=== PATIENT | female | born 1985 | race Caucasian/White ===

== ENCOUNTER → 2019-07-20 11:15 | Outpatient (BNVA) | payer OTHER, SELFPAY | PROVIDERS: Family Provider Nurse Practitioner Family; PCP Family Medicine; Visit Provider Nurse Practitioner Women's Health | DX: G89.29 Other chronic pain (principal); R53.83 Other fatigue; N64.4 Mastodynia; R00.0 Tachycardia, unspecified; I95.1 Orthostatic hypotension; G43.909 Migraine, unspecified, not intractable, without status migrainosus | CPT/HCPCS: 36415; 82670; 83001; 84439; 84443; 85025 ==

== ENCOUNTER 2020-01-03 09:37 | Outpatient (CLI) | payer OTHER, SELFPAY ==
--- NOTE | 2020-01-03 10:09 | XRR_ITS ---
PROCEDURE INFORMATION: Exam: XR Left Foot Complete Exam date and time: 01/03/2020 10:28 AM Age: 34 years old Clinical indication: Pain; Foot; Bilateral; Patient HX: Redness in lower extremities; Additional info: Chronic pain TECHNIQUE: Imaging protocol: XR Left foot. Views: 3 or more views. COMPARISON: No relevant prior studies available. FINDINGS: Bones/joints: Normal. Soft tissues: Normal. XR/XR foot LT min 3V* [id number] IMPRESSION: No acute findings.
--- NOTE | 2020-01-03 10:09 | XRR_ITS ---
PROCEDURE INFORMATION: Exam: XR Right Foot Complete Exam date and time: 01/03/2020 10:23 AM Age: 34 years old Clinical indication: Pain; Foot; Bilateral; Patient HX: Redness in lower extremity; Additional info: Chronic pain TECHNIQUE: Imaging protocol: XR Right foot. Views: 3 or more views. COMPARISON: No relevant prior studies available. FINDINGS: Bones/joints: Normal. Soft tissues: Normal. XR/XR foot RT min 3V* [id number] IMPRESSION: No acute findings.
== END 2020-01-03 09:38 | disposition home or self-care (01) ==
LOC: RAD 09:40
PROVIDERS: Family Provider Family Medicine; PCP Family Medicine; Visit Provider Nurse Practitioner Women's Health
DX: M79.672 Pain in left foot (principal); M79.671 Pain in right foot; G89.29 Other chronic pain
CPT/HCPCS: 73630

== ENCOUNTER → 2020-01-06 08:45 | Outpatient (BNVA) | payer OTHER, SELFPAY | PROVIDERS: Family Provider Family Medicine; PCP Family Medicine; Visit Provider Family Medicine | DX: Z00.00 Encounter for general adult medical examination without abnormal findings (principal) | CPT/HCPCS: 73030 ==

== ENCOUNTER 2020-02-25 14:23 | Emergency (ER) | payer OTHER, SELFPAY ==
[2020-02-25 14:25] VITALS: BP 146/94; PULSE 95; RESP 16; TEMP 36.7; O2SAT 100; BMI 21.9
--- NOTE | 2020-02-25 14:31 | CT_ITS ---
WS: [id number] CT scan of the head, 02/25/2020 Clinical Data: fry Comparison: CT head, 12/18/2018. DLP: 757.[address] scans at [facility] use at least one of these dose optimization techniques: automat ed exposure control; mA and/or kV adjustment per patient size (includes targeted exams where dose is matched to clinical indication); or iterative reconstruction. Findings: The ventricular system is normal without shift. No recent infarct or hemorrhage is seen. There are no abnormal intracerebral masses. The cerebellum and brainstem are not remarkable. Bony windows of the skull and skull base show no fractures or erosions. The mastoid air cells, international broadcast music librarian al auditory canals, sella turcica, intraorbital contents, and paranasal sinuses are unremarkable. CT/CT head wo con* [id number] Impression: Negative CT scan of the head
--- NOTE | 2020-02-25 14:32 | ECG_ITS ---
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 Measurements Intervals [place] Rate: 97 P: 65 IL: 139 QRS: 74 QRSD: 96 T: 78 QT: 366 QTc: 466 Interpretive Statements SINUS RHYTHM INCOMPLETE RIGHT BUNDLE BRANCH BLOCK [90+ ms QRS DURATION, TERMINAL R IN V1/V2, 40+ ms S IN I/aVL/V4/V5/V6] SEPTAL MYOCARDIAL INFARCTION , OF INDETERMINATE AGE [40+ ms Q WAVE IN V1/V2] Compared to ECG 08/11/2017 17:42:39 No significant changes Electronically Signed On 02-25-2020 16:11:53 CDT by Urbano Bustamante M.D. [id number]
--- NOTE | 2020-02-25 14:32 | W.ED.SYNCOPE ---
HPI - Syncope General: Chief Complaint: Chest Pain Stated Complaint: HEAD AND CHEST PAIN Time Seen by Provider: 02/25/20 14:23 Source: patient and EMS Mode of arrival: EMS Limitations: no limitations History of Present Illness: HPI narrative: 34-year-old female who has a history of migraines who states she had a migraine today. States it felt like her previous migraines. States she is at work and a friend told her she smoked marijuana to help her. She states she has never smoked before and spoke with her friend. States she felt lightheaded and then had a syncopal event. She states she now has some chest pain as well. States she still has a headache. Denies any vomiting or diarrhea. Associated symptoms: Reports chest pain and headache(s); Deny abdominal pain, fever(s) or nausea Review of Systems Const: Denies: fever(s), chills, body aches or change in appetite Eyes: Denies: blurry vision or eye discomfort ENMT: Denies: throat pain or dental pain Card: Reports: chest pain and syncope Resp: Denies: dyspnea GI: Denies: abdominal pain, nausea, vomiting or diarrhea : Denies: dysuria Musc: Denies: neck pain or back pain Skin/Breast: Denies: rash Neuro: Reports: headache(s) Psych: Denies: depression [place]ison/Lymph: Denies: easy bruising All/Imm: Denies: urticaria PFSH ED PFSH: Medical History Breast pain in female Chronic pain Fatigue Migraine POTS (postural orthostatic tachycardia syndrome) Surgical History History of bladder repair surgery 2 different procedures completed by Dr. Cabezas; one during hyst and one after for prolapse History of breast augmentation History of laparoscopic-assisted vaginal hysterectomy Ovaries were spared--due to endometriosis Family History Grandmother Cancer Maternal Grandmother-Breast cancer Diabetes Hypertension Mother Hypertension Father Hypertension Grandfather Hypertension Paternal Stroke Grandmother Hypertension Paternal Stroke Paternal Denies family history of CAD (coronary artery disease) Social History Smoking and tobacco status: never smoked Alcohol intake: former Former alcohol use details: Social Physical Exam Const: COMMON NORMALS: no acute distress, patient oriented x3 and healthy appearing HENMT: COMMON NORMALS: normocephalic and atraumatic HEAD & SCALP: normocephalic and atraumatic Eye: COMMON NORMALS: Equal, round and reactive pupils present and EOMs intact bilaterally PUPIL: Yes Equal, round and reactive pupils present Neck/C-Spine: COMMON NORMALS: full ROM and supple Chest: COMMONS NORMALS: normal inspection of the chest and normal palpation of entire chest wall Resp: COMMON NORMALS: normal respiratory effort, No retractions, No use of accessory muscles and clear to auscultation bilaterally AUSCULTATION: clear to auscultation bilaterally Cardio: COMMON NORMALS: regular rate, regular rhythm and No murmurs present (Cardio) RATE: regular rate RHYTHM: regular rhythm GI: COMMON NORMALS: Normal to inspection, nondistended, normoactive bowel sounds present, Soft to palpation, non-tender and no masses PALPATION: Yes Soft to palpation Extremity: COMMON NORMALS: normal to inspection and full ROM Neuro: COMMON NORMALS: patient oriented x3, moves all extremities and no focal motor deficits Psych: COMMON NORMALS: mental status grossly normal, Normal thought process present and cooperative THOUGHT PROCESS: Normal thought process present Skin: COMMON NORMALS: no rashes or lesions noted and no wounds GENERAL SKIN EXAM: no rashes or lesions noted Course Vital Signs: Vital signs: Vital Signs Temperature 98.1 F 02/25/20 14:25 Pulse Rate 101 H 02/25/20 15:26 Respiratory Rate 21 H 02/25/20 15:26 Blood Pressure 128/93 02/25/20 15:26 Pulse Oximetry 100 02/25/20 15:26 MDM - Syncope MDM Narrative: Medical decision making narrative: Lubna presents with a headache does have chronic headaches. Her head CT here is normal. Patient's headache is improved. Patient also simple event likely due to marijuana use. She is well-appearing here and is stable for discharge she has no signs of cardiac cause for this event. Lab Data: Labs: Lab Results 02/25/20 02/25/20 Range/Units 15:05 15:05 WBC 6.5 (4.0-10.0) 10^3/ uL RBC 4.21 (4.1-5.3) 10^6/u L Hgb 12.8 (11.5-15.3) g/dL Hct 39.5 (37.0-47.0) % MCV 93.8 (81-99) fL MCH 30.4 (28.0-34.0) pg MCHC 32.4 (30.0-36.0) g/dL RDW 11.7 L (12.1-15.1) % Plt Count 193 (130-400) 10^3/c mm MPV 11.8 H (7.4-10.4) fL Neut % (Auto) 81.2 % Lymph % (Auto) 10.0 % [place] % (Auto) 7.5 % Eos % (Auto) 0.5 % Baso % (Auto) 0.5 % Neut # (Auto) 5.31 (1.8-7.7) 10^3/u L Lymph # (Auto) 0.7 L (0.8-4.8) 10^3/u L [place] # (Auto) 0.5 (0.2-0.9) 10^3/u L Eos # (Auto) 0.0 (0.0-0.8) 10^3/u L Baso # (Auto) 0.0 (0.0-0.1) 10^3/u L Nucleated RBC % (a uto) 0 % Nucleated RBCs # 0.0 /100WBC Sodium 138 (136-145) mmol/L Potassium 3.6 (3.5-5.1) mmol/L Chloride 103 (98-107) mmol/L Carbon Dioxide 26 (22-29) mmol/L Anion Gap 12.6 (5-19) BUN 7 (6-20) mg/dL Creatinine 0.7 (0.5-0.9) mg/dL GFR Calculation 95.8 (90-130) mL/min Glucose 113 (65-115) mg/dL Calculated Osmolal ity 283 L (285-295) mOsm/k g Calcium 8.9 (8.5-10.5) mg/dL Total Bilirubin 0.2 (0.15-1.2) mg/dL AST 19 (0-32) U/L ALT 19 (0-33) U/L Alkaline Phosphata se 62 (35-105) IU/L Total Protein 6.2 L (6.6-8.7) g/dL Albumin 4.6 (3.5-5.2) g/dL Globulin 1.6 (1.3-4.6) g/dL Imaging Data^: CT Head: Attestation: I personally reviewed and interpreted this imaging study as follows: Radiologist's impression: [address] [address] [address] Scan Report Signed Patient: Laura Vital Unit #: [id number] : 1985 Age/Sex: 34 / F ADM Date: 02/25/20 Loc: ER Room/Bed: Attending Dr: Ordering Provider/Ordering MD: Michaelle Starkey MD Date of Service: 02/25/20 Procedure(s): CT head wo con* [id number] Accession Number(s): [id number] Report Number: [id number] WS: [id number] CT scan of the head, 02/25/2020 Clinical Data: fry Comparison: CT head, 12/18/2018. DLP: 757.[address] scans at [facility] use at least one of these dose optimization techniques: automated exposure control; mA and/or kV adjustment per patient size (includes targeted exams where dose is matched to clinical indication); or iterative reconstruction. Findings: The ventricular system is normal without shift. No recent infarct or hemorrhage is seen. There are no abnormal intracerebral masses. The cerebellum and brainstem are not remarkable. Bony windows of the skull and skull base show no fractures or erosions. The mastoid air cells, internal auditory canals, sella turcica, intraorbital contents, and paranasal sinuses are unremarkable. CT/CT head wo con* [id number] Impression: Negative CT scan of the head CXR: Radiologist's impression: [address] [address] XRay Report Signed Patient: Shirley Escalera Unit #: [id number] : 04/13/1947 Age/Sex: 72 / F ADM Date: 02/25/20 Loc: ER Room/Bed: Attending Dr: Ordering Provider/Ordering MD: Michaelle Starkey MD Date of Service: 02/25/20 Procedure(s): XR chest 1V portable [id number] Accession Number(s): [id number] Report Number: [id number] WS: [id number] Portable AP upright chest, 02/25/2020 Clinical Data: congestion Comparison: PA and lateral chest, 09/01/2019. Findings: No nodules, masses or effusions are seen. The heart is normal. The pulmonary vascularity is not increased. No pneumonia or pneumothorax is seen. There is a right infusion catheter with the tip ending in the superior vena cava. The aortic arch and descending aorta are tortuous. The diaphragms are flattened. There is a gastrostomy tube overlying the stomach. XR/XR chest 1V portable [id number] Impression: Atherosclerosis and hyperinflation. EKG Data^: EKG 1: Attestation: I personally reviewed and interpreted this EKG as follows: EKG interpretation date: 02/25/20 EKG interpretation time: 14:34 Interpretation: nsr hr [address] or t wave abnormalities qrs 96 qtc 420 Discharge Plan Discharge Patient Disposition: Home Clinical Impression: Syncope Qualifiers: Syncope type: unspecified Qualified Code(s): R55 - Syncope and collapse Headache Qualifiers: Headache type: unspecified Condition: Stable Prescriptions: No Action estradiol 1 mg tablet 1 mg PO DAILY Qty: 90 RF: 1 cholecalciferol (vitamin D3) 1,000 unit capsule 5,000 unit PO ONCE RF: 0 Aimovig Autoinjector 140 mg/mL auto-injector 140 mg SUBCUT .MONTHLY RF: 0 bupropion HCl 150 mg tablet sustained-release 12 hr 300 mg PO DAILY Qty: 60 RF: 1 Savella 12.5 mg (5)-25 mg(8)-50 mg(42) tablets,dose pack See Rx Instructions PO PER PKG DIR Qty: 55 RF: 0 hydroxyzine HCl 25 mg tablet 25 mg PO TID PRN (Reason: nausea and vomiting) Qty: 30 RF: 0 baclofen 10 mg tablet 10 mg PO TID Qty: 30 RF: 0 Discharge Orders: Discharge Order (Routine); Ordered 02/25/20 Ordered By: Michaelle Starkey Referrals: Hailey Gupta MD [Primary Care Provider] - Discharge Diet: Advance as tolerated Discharge Activity: Resume usual activity Patient Instructions: Headache, Syncope (ED) Coding Level of Care Code ED Manager Creative for [employer] Fwd Exam Comprehensive
--- NOTE | 2020-02-25 14:43 | PC.NURSE ---
PT TO CT VIA STRETCHER AND FLYING SHEAR OPERATOR.
[2020-02-25 15:12] LABS: Basophils % 0.5 %; Eosinophils % 0.5 %; Hematocrit 39.5 % (37.0-47.0); Hemoglobin 12.8 g/dL (11.5-15.3); Lymphocytes # 0.7 10^3/uL (0.8-4.8); Mean Corpuscular HGB Conc 32.4 g/dL (30.0-36.0); Mean Corpuscular Hemoglobin 30.4 pg (28.0-34.0); Mean Corpuscular Volume 93.8 fL (81-99); Mean Platelet Volume 11.8 fL (7.4-10.4); Monocytes # 0.5 10^3/uL (0.2-0.9); Monocytes % 7.5 %; Neutrophils # 5.31 10^3/uL (1.8-7.7); Neutrophils % 81.2 %; Nucleated Red Blood Cells % 0 %; Platelet Count 193 10^3/cmm (130-400); Red Blood Count 4.21 10^6/uL (4.1-5.3); Red Cell Distribution Width 11.7 % (12.1-15.1); White Blood Count 6.5 10^3/uL (4.0-10.0)
[2020-02-25] MEDS: diphenhydrAMINE 50 mg/mL SDV 1mL IVP (15:18)
[2020-02-25] MEDS: ketorolac 30 mg/mL INJ IVP (15:18)
[2020-02-25] MEDS: metoclopramide 5 mg/mL SDV 2 mL 10 MG IVP (15:18)
[2020-02-25] MEDS: sodium chloride 0.9% 1,000 ML 999 ML IV (15:19)
[2020-02-25 15:26] VITALS: BP 128/93; PULSE 101; RESP 21; O2SAT 100
[2020-02-25 15:35] LABS: Alanine Aminotransferase 19 U/L (0-33); Albumin Level 4.6 g/dL (3.5-5.2); Alkaline Phosphatase 62 IU/L (35-105); Anion Gap 12.6 (5-19); Aspartate Amino Transferase 19 U/L (0-32); Blood Urea Nitrogen 7 mg/dL (6-20); Calcium 8.9 mg/dL (8.5-10.5); Carbon Dioxide 26 mmol/L (22-29); Chloride 103 mmol/L (98-107); Globulin 1.6 g/dL (1.3-4.6); Glomerular Filtration Rate 95.8 mL/min (90-130); Glucose 113 mg/dL (65-115); Osmolality Calculated 283 mOsm/kg (285-295); Potassium 3.6 mmol/L (3.5-5.1); Sodium 138 mmol/L (136-145); Total Bilirubin 0.2 mg/dL (0.15-1.2); Total Protein 6.2 g/dL (6.6-8.7)
--- NOTE | 2020-02-25 15:41 | XR_ITS ---
WS: [id number] Portable AP upright chest, 02/25/2020 Clinical Data: cp Comparison: PA and lateral chest, 08/11/2017. Findings: No nodules, masses or effusions are seen. The heart is normal. The pulmonary vascularity is not increased. No pneumonia or pneumothorax is seen. XR/XR chest 1V portable [id number] Impression: Negative chest.
[2020-02-25 16:39] VITALS: BP 118/79; PULSE 17; RESP 97; TEMP 36.7; O2SAT 99
== END 2020-02-25 16:39 | disposition home or self-care (01) ==
PROVIDERS: Emergency Provider Emergency Medicine; PCP Family Medicine
DX: R51 Headache (principal); R55 Syncope and collapse
CPT/HCPCS: 12345; 70450; 71045; 80053; 85025; 93005; 93010; 96361; 96374; 96375; 99282; 99284; J1200; J1885; J2765; J7030

== ENCOUNTER → 2020-05-26 11:31 | Outpatient (BNVA) | payer OTHER, SELFPAY | PROVIDERS: PCP Family Medicine; Visit Provider Nurse Practitioner Women's Health | DX: R58 Hemorrhage, not elsewhere classified (principal); N89.8 Other specified noninflammatory disorders of vagina | CPT/HCPCS: 80053; 81000 ==

== ENCOUNTER → 2020-06-01 08:16 | Outpatient (BNVA) | payer OTHER, SELFPAY | PROVIDERS: PCP Family Medicine; Visit Provider Nurse Practitioner Women's Health | DX: N93.9 Abnormal uterine and vaginal bleeding, unspecified (principal) | CPT/HCPCS: 76830 ==

== ENCOUNTER 2020-06-29 06:00 | Outpatient (RCR) | payer OTHER, SELFPAY | END 2020-07-13 23:59 | disposition home or self-care (01) | LOC: TST 06:00 | PROVIDERS: PCP Family Medicine; Referring Provider Specialist; Visit Provider Specialist | DX: R49.0 Dysphonia (principal) | CPT/HCPCS: 92524 ==

== ENCOUNTER 2020-12-16 09:54 | Emergency (ER) | payer SELFPAY ==
[2020-12-16 10:02] VITALS: BP 156/103; PULSE 90; RESP 16; TEMP 36.8; O2SAT 100; BMI 20.9
--- NOTE | 2020-12-16 10:34 | W.ED.HA ---
HPI - Headache General: Chief Complaint: Headache Stated Complaint: migraine/tx yesterday not helping Time Seen by Provider: 12/16/20 10:16 History of Present Illness: HPI Narrative: Patient is a 35-year-old female comes to the ED with headache. Patient has a past medical history of migraines and fibromyalgia. Patient says symptoms started 3 days ago . She says this headache is not like her past migraines. She says the pain starts at her neck and back of her head and it radiates up and to the left forehead region. She says pain has episodes of sharpness but is more aching. She says the left side of her neck is sore. Denies any photophobia. Endorses having some nausea and vomiting over the past couple days. She endorses having some blurry vision in left eye but denies any other vision changes or neurological symptoms. Associated symptoms: Reports nausea and vomiting; Deny chest pain, fever(s) or rash Review of Systems Const: Denies: fever(s), chills or fatigue Eyes: Denies: change in vision or eye discomfort ENMT: Denies: throat pain, odynophagia, nasal discharge or nasal congestion Card: Denies: chest pain, palpitations, edema, swelling of feet/ankles, dyspnea on exertion or orthopnea Resp: Denies: dyspnea, productive cough or non-productive cough GI: Reports: nausea and vomiting; Denies: abdominal pain, diarrhea, constipation or hematochezia : Denies: flank pain, dysuria or hematuria Musc: Reports: neck pain; Denies: back pain or extremity swelling Skin/Breast: Denies: rash or new lesions Neuro: Reports: headache(s); Denies: numbness in extremities or weakness in extremities [facility] ED PFSH: Medical History Breast pain in female Chronic pain Fatigue Migraine POTS (postural orthostatic tachycardia syndrome) Surgical History History of bladder repair surgery 2 different procedures completed by Dr. Cabezas; one during hyst and one after for prolapse History of breast augmentation History of laparoscopic-assisted vaginal hysterectomy Ovaries were spared--due to endometriosis Family History Grandmother Diabetes Hypertension Breast cancer maternal--- dx age 40's Mother Hypertension Father Hypertension Grandfather Hypertension Paternal Stroke Grandmother Hypertension Paternal Stroke Paternal Denies family history of CAD (coronary artery disease) Physical Exam Const: COMMON NORMALS: no acute distress, patient oriented x3, healthy appearing and alert GENERAL APPEARANCE: cooperative and comfortable HENMT: COMMON NORMALS: normocephalic HEAD & SCALP: normocephalic MOUTH: Normal oral and palatal mucosa present THROAT: posterior oropharynx normal and uvula midline Eye: COMMON NORMALS: Equal, round and reactive pupils present, EOMs intact bilaterally and conjunctivae normal CONJUNCTIVA: Yes conjunctivae normal PUPIL: Yes Equal, round and reactive pupils present Neck/C-Spine: COMMON NORMALS: supple GENERAL: Yes normal visual inspection CERVICAL SPINE: Yes pain with cervical ROM, Yes Paracervical muscle tenderness left and Yes Trapezius muscle tenderness left Resp: COMMON NORMALS: normal respiratory effort, No retractions, No use of accessory muscles and clear to auscultation bilaterally AUSCULTATION: clear to auscultation bilaterally Cardio: COMMON NORMALS: regular rate, regular rhythm, S1 normal heart sound present, S2 normal heart sound present, No gallops present (Cardio), No clicks present (Cardio), No murmurs present (Cardio) and Peripheral pulses 2+ throughout RATE: regular rate RHYTHM: regular rhythm HEART SOUNDS: S1 normal heart sound present and S2 normal heart sound present PERIPHERAL PULSES: Peripheral pulses 2+ throughout GI: COMMON NORMALS: Normal to inspection, nondistended, normoactive bowel sounds present, Soft to palpation, non-tender and no masses PALPATION: Yes Soft to palpation : COMMON NORMALS: Yes no CVA tenderness BLADDER/KIDNEY EXAM: Yes no CVA tenderness Back/Pelvis: COMMON NORMALS: no CVA tenderness Extremity: COMMON NORMALS: normal to inspection Neuro: COMMON NORMALS: patient oriented x3, CN's II-XII intact bilaterally, moves all extremities, no focal motor deficits and no sensory deficits noted SENSORIUM/ORIENTATION: Yes alert SENSORY EXAM: Yes extremities (intact) MOTOR EXAM: 5/5 motor strength present throughout Skin: GENERAL SKIN EXAM: dry skin Course Reevaluation(s): Reevaluation #1: Patient's headache improved greatly after she received IV medications. Vital Signs: Vital signs: Vital Signs Temperature 98.2 F 12/16/20 10:02 Pulse Rate 90 12/16/20 10:02 Respiratory Rate 16 12/16/20 10:02 Blood Pressure 156/103 12/16/20 10:02 Pulse Oximetry 100 12/16/20 10:02 MDM - Headache MDM Narrative: Medical decision making narrative: Patient is a 35-year-old female comes to the ED with a headache and neck pain. Patient has past medical history of migraines and fibromyalgia. Patient says this headache is different than her past migraines. She is also been having neck muscle pain on the left side. Patient appears nontoxic and in no acute distress. Neuro exam normal. She has some left paracervical muscle tenderness. CT of head showed no acute findings. Patient was given IV fluids, Toradol, Reglan, Decadron and Benadryl. Patient's headache improved greatly. Patient was diagnosed with headache and neck pain on left side. Patient was discharged home with prescription for ibuprofen 800 mg and cyclobenzaprine. Return to ED precautions given. Follow-up with PCP in 7 to 10 days for evaluation. Patient understood and agree with plan. Imaging Data^: CT Head: Attestation: I personally reviewed and interpreted this imaging study as follows: Radiologist's impression: [address] [address] [address] Scan Report Signed Patient: Laura Vital Unit #: [id number] : 1985 Age/Sex: 35 / F ADM Date: 12/16/20 Loc: ER Room/Bed: Attending Dr: Ordering Provider/Ordering MD: Jeovany Henson Date of Service: 12/16/20 Procedure(s): CT head wo con* [id number] Accession Number(s): [id number] Report Number: [id number] PROCEDURE INFORMATION: Exam: CT Head Without Contrast Exam date and time: 12/16/2020 10:38 AM Age: 35 years old Clinical indication: Pain; Headache; Migraine TECHNIQUE: Imaging protocol: Computed tomography of the head without contrast. Radiation optimization: All CT scans at this facility use at least one of these dose optimization techniques: automated exposure control; mA and/or kV adjustment per patient size (includes targeted exams where dose is matched to clinical indication); or iterative reconstruction. COMPARISON: CT head wo con* [id number] 02/25/2020 2:40 PM RADIATION DOSE METRICS: Total DLP (mGy-cm): 755.6 FINDINGS: Brain: Normal. No hemorrhage. Unremarkable white matter. No mass effect. Cerebral ventricles: No ventriculomegaly. Paranasal sinuses: Visualized sinuses are unremarkable. No fluid levels. Mastoid air cells: Visualized mastoid air cells are well aerated. Bones/joints: Unremarkable. No acute fracture. Soft tissues: Unremarkable. CT/CT head wo con* [id number] IMPRESSION: No significant abnormality is seen. Radiation Dose CTDIVOL = (mGy): DLP = 755.6 (mGy-cm) Dictated By: Umesh Lizarraga Signed By: Umesh Lizarraga Signed Date/Time: 12/16/201216 DD/ 14 Discharge Plan Discharge Patient Disposition: Home Clinical Impression: Neck pain on left side Headache Qualifiers: Headache type: tension-type Headache chronicity pattern: acute headache Intractability: not intractable Qualified Code(s): G44.209 - Tension-type headache, unspecified, not intractable Condition: Stable Prescriptions: New cyclobenzaprine 10 mg tablet 10 mg PO TID PRN (Reason: muscle spasm) Qty: 20 RF: 0 ibuprofen 800 mg tablet 800 mg PO Q8H PRN (Reason: pain) Qty: 20 RF: 0 No Action ondansetron HCl [Zofran] 8 mg tablet 8 mg PO Q8H PRN (Reason: nausea and vomiting) RF: 0 cnbrltcdks-tuqrdcdivyliv-uzai 50-325-40 mg tablet 1 tab PO Q4H PRNRF: 0 cyclobenzaprine 10 mg tablet 10 mg PO TID PRN (Reason: muscle spasm) RF: 0 baclofen 10 mg tablet See Rx Instructions .ROUTE .COMPLEX Qty: 30 RF: 0 hydroxyzine HCl 25 mg tablet See Rx Instructions .ROUTE .COMPLEX Qty: 30 RF: 0 estradiol 1 mg tablet 1 mg PO DAILY Qty: 90 RF: 4 bupropion HCl 150 mg tablet sustained-release 12 hr 300 mg PO DAILY Qty: 60 RF: 2 Discharge Orders: Discharge ED (Routine); Ordered 12/16/20 Ordered By: Jeovany Henson Referrals: Hailey Gupta MD [Primary Care Provider] - Discharge Diet: Regular Discharge Activity: Increase activity as tolerated Patient Instructions: Tension Headache (ED), Acute Headache (ED) Activity Restrictions/Additional Instructions: Follow-up with medical provider as directed in 7 to 10 days. Take medications as prescribed. Cyclobenzaprine is a muscle relaxer and can cause some drowsiness so take at night before bed. Apply cold pack on neck and try to stretch neck muscles on daily. Return to the ER or your medical provider if condition worsens. Please read and understand discharge instructions. Thank you for choosing [facility] for your healthcare needs today. Please realize this is an emergency room and that we are providing you with a medical screening exam and this may not be complete and all inclusive of all the testing and or work up that you may need to determine your ailment or severity of your illness. It is very important that you follow up as instructed or that you return to the Emergency Department should you have concerns or if your condition changes or worsens in any way. Coding Level of Care Code ED Digital Communications Manager for Gricel Haley Exam Comprehensive
[2020-12-16] MEDS: dexamethasone 4 mg/mL INJ 10 MG IVP (10:43)
[2020-12-16] MEDS: ketorolac 30 mg/mL INJ IVP (10:44)
[2020-12-16] MEDS: sodium chloride 0.9% 1,000 ML 999 ML IV (10:46)
[2020-12-16] MEDS: metoclopramide 5 mg/mL SDV 2 mL 10 MG IVP (13:16)
[2020-12-16] MEDS: diphenhydrAMINE 50 mg/mL SDV 1mL 25 MG IVP (13:16)
[2020-12-16 14:09] VITALS: BP 161/93; PULSE 85; RESP 18; O2SAT 100
== END 2020-12-16 14:10 | disposition home or self-care (01) ==
PROVIDERS: Emergency Provider Physician Assistant; PCP Family Medicine
DX: R51.9 Headache, unspecified (principal); M54.2 Cervicalgia; M79.7 Fibromyalgia
CPT/HCPCS: 70450; 96361; 96374; 96375; 99284; J1100; J1200; J1885; J2765; J7030

== ENCOUNTER 2021-04-17 13:26 | Outpatient (CLI) | payer SELFPAY ==
[2021-04-17 13:52] VITALS: BP 127/84; PULSE 71; RESP 18; TEMP 36.4; O2SAT 99; BMI 21.7
[2021-04-17 15:27] VITALS: BP 129/87; PULSE 72; RESP 16; TEMP 36.5; O2SAT 97
== END 2021-04-17 13:27 | disposition home or self-care (01) ==
PROVIDERS: PCP Family Medicine; Visit Provider Nurse Practitioner Family
DX: U07.1 COVID-19 (principal)
CPT/HCPCS: 96365

== ENCOUNTER → 2021-06-11 16:54 | Outpatient (BNVA) | payer SELFPAY | PROVIDERS: PCP Family Medicine; Visit Provider Registered Nurse Neonatal Intensive Care | DX: M25.511 Pain in right shoulder (principal) | CPT/HCPCS: 73030 ==

== ENCOUNTER 2021-10-24 11:26 | Outpatient (CLI) | payer SELFPAY ==
--- NOTE | 2021-10-24 11:37 | US_ITS ---
WS: [id number] INDICATION: Lump RIGHT upper limb TECHNIQUE: Ultrasound RIGHT axilla. FINDINGS: Ultrasound RIGHT axilla in the area of concern. No evidence of cystic or solid lesion. Norm al underlying subcutaneous soft tissues. No suspicious findings in the area of concern. US/US soft tissue/extremity [id number] IMPRESSION: Normal soft tissue RIGHT axillary ultrasound.
== END 2021-10-24 11:27 | disposition home or self-care (01) ==
PROVIDERS: PCP Family Medicine; Visit Provider Family Medicine
DX: R22.31 Localized swelling, mass and lump, right upper limb (principal); N64.4 Mastodynia
CPT/HCPCS: 76882

== ENCOUNTER 2021-10-31 16:57 | Emergency (ER) | payer SELFPAY ==
[2021-10-31 17:03] VITALS: BP 166/105; PULSE 91; RESP 16; TEMP 36.7; O2SAT 100; BMI 21.2
[2021-10-31 17:06] VITALS: BP 166/105; PULSE 91; RESP 16; TEMP 36.7; O2SAT 100
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
[2021-10-31 18:21] VITALS: BP 148/92; PULSE 89; RESP 16; O2SAT 100
[2021-10-31] MEDS: ketorolac 30 mg/mL INJ IVP (18:48)
[2021-10-31 18:59] VITALS: BP 140/100; PULSE 93; O2SAT 99
== END 2021-10-31 19:00 | disposition home or self-care (01) ==
PROVIDERS: Emergency Provider Emergency Medicine; PCP Family Medicine
DX: S46.912A Strain of unspecified muscle, fascia and tendon at shoulder and upper arm level, left arm, initial encounter (principal); S46.911A Strain of unspecified muscle, fascia and tendon at shoulder and upper arm level, right arm, initial encounter; V49.49XA Driver injured in collision with other motor vehicles in traffic accident, initial encounter
CPT/HCPCS: 70450; 71045; 72125; 73030; 73090; 96374; 99283; J1885

== ENCOUNTER → 2021-11-09 10:02 | Outpatient (BNVA) | payer SELFPAY | PROVIDERS: PCP Family Medicine; Visit Provider Family Medicine | DX: N39.0 Urinary tract infection, site not specified (principal) | CPT/HCPCS: 81003 ==

== ENCOUNTER → 2021-11-26 10:44 | Outpatient (BNVA) | payer SELFPAY | PROVIDERS: PCP Family Medicine; Visit Provider Family Medicine | DX: N39.0 Urinary tract infection, site not specified (principal); F41.9 Anxiety disorder, unspecified; I73.00 Raynaud's syndrome without gangrene; M25.512 Pain in left shoulder | CPT/HCPCS: 81000 ==

== ENCOUNTER 2023-01-31 06:00 | Outpatient (RCR) | payer SELFPAY | END 2023-02-10 23:59 | disposition home or self-care (01) | LOC: TPT 06:00 | PROVIDERS: Visit Provider Family Medicine | DX: M25.512 Pain in left shoulder (principal) | CPT/HCPCS: 97110; 97140; 97162 ==

== ENCOUNTER 2023-02-11 06:00 | Outpatient (RCR) | payer SELFPAY | END 2023-03-13 23:59 | disposition home or self-care (01) | LOC: TPT 06:00 | PROVIDERS: Visit Provider Family Medicine | DX: M25.512 Pain in left shoulder (principal) | CPT/HCPCS: 97110; 97140 ==

== ENCOUNTER 2023-02-17 09:04 | Outpatient (CLI) | payer SELFPAY ==
--- NOTE | 2023-02-17 09:31 | MM_ITS ---
WS: [id number] DIAGNOSTIC BILATERAL DIGITAL BREAST TOMOSYNTHESIS MAMMOGRAPHY WITH CAD RIGHT breast ultrasound, limited. HISTORY: RIGHT breast palpable nodules. Prior removal of implants. COMPARISON: 07/08/2019 TECHNIQUE: Bilateral craniocaudad, mediolateral oblique, and mediolateral views are Submitted with to mosynthesis and SM. Spot compression RIGHT MLO. Computer aided detection utilized. Breast composition: The breasts are extremely dense, which lowers the sensitivity of mammography. No abnormality is noted towards the axillary tail at the site of the palpable markers. There is dense fi broglandular tissue. RIGHT breast ultrasound, limited. Ultrasound is directed towards the palpable abnormality towards the axilla. No suspicious masses are identified and no shadowing. There is a benign lymph node measuring 10 x 6 x 10 mm. MM/[place] [id number] IMPRESSION: BI-RADS: 2-Benign FOLLOW UP: 1 Year Follow-up
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
== END 2023-02-17 09:05 | disposition home or self-care (01) ==
LOC: RAD 09:07 → MOBLMAM 09:14 → RAD 09:26
PROVIDERS: PCP Family Medicine; Visit Provider Family Medicine
DX: N63.32 Unspecified lump in axillary tail of the left breast (principal)
CPT/HCPCS: 76642; 77062; G0279

== ENCOUNTER → 2023-10-10 11:38 | Outpatient (BNVA) | payer OTHER, SELFPAY | PROVIDERS: PCP Family Medicine; Visit Provider Family Medicine | DX: R10.2 Pelvic and perineal pain (principal); Z13.6 Encounter for screening for cardiovascular disorders; R00.0 Tachycardia, unspecified; I95.1 Orthostatic hypotension | CPT/HCPCS: 80053; 80061; 81000; 84443; 85025 ==

== ENCOUNTER 2023-10-22 07:58 | Outpatient (CLI) | payer OTHER, SELFPAY ==
--- NOTE | 2023-10-22 08:00 | US_ITS ---
WS: [id number] US pelv w/transvag [id number] HISTORY: R10.2 - Pelvic and perineal pain COMPARISON: None available. Uterus: Prior hysterectomy. No midline mass. Right ovary: 2.8 cm x 2.6 cm x 4.0 cm. Normal size and vascularity, no cystic or solid masses. Severa l small follicles. Normal vascularity in the adjacent ovary. Left ovary: 4.4 cm x 3.0 cm x 3.1 cm. LEFT ovary is enlarged. There are multiple small follicles. The largest follicle contains a thin septation. The largest follicle measures 2.2 x 2.3 x 2.5 cm. No xiomy id mass or cyst. Normal vascularity in the adjacent ovary. No free fluid in the cul-de-sac. IMPRESSION: 1. Status post hysterectomy. No midline mass. 2. LEFT ovary is very slightly enlarged due to several follicles. The largest follicle contains a th in septation. This largest follicle measures 2.2 x 2.3 x 2.5 cm. No solid mass or cyst.
== END 2023-10-22 07:59 | disposition home or self-care (01) ==
LOC: RAD 07:59
PROVIDERS: PCP Family Medicine; Visit Provider Family Medicine
DX: R10.2 Pelvic and perineal pain (principal)
CPT/HCPCS: 76830; 76856

== ENCOUNTER → 2023-11-05 09:44 | Outpatient (BNVA) | payer OTHER, SELFPAY | PROVIDERS: PCP Family Medicine; Visit Provider Nurse Practitioner Women's Health | DX: N95.1 Menopausal and female climacteric states (principal); R53.83 Other fatigue; Z01.419 Encounter for gynecological examination (general) (routine) without abnormal findings; N83.202 Unspecified ovarian cyst, left side | CPT/HCPCS: 82306; 82670; 83001 ==

== ENCOUNTER → 2023-11-13 15:59 | Outpatient (BNVA) | payer OTHER, SELFPAY | PROVIDERS: PCP Family Medicine; Visit Provider Family Medicine | DX: R53.83 Other fatigue (principal) | CPT/HCPCS: 82607; 82728; 83540; 84443; 85025; 86664; 86665 ==

== ENCOUNTER → 2023-12-31 14:22 | Outpatient (BNVA) | payer OTHER, SELFPAY | PROVIDERS: PCP Family Medicine; Visit Provider Nurse Practitioner Women's Health | DX: N83.202 Unspecified ovarian cyst, left side (principal) | CPT/HCPCS: 76830 ==

== ENCOUNTER 2024-02-06 10:00 | Emergency (ER) | payer OTHER, SELFPAY ==
[2024-02-06 10:03] VITALS: BP 149/99; PULSE 85; RESP 19; TEMP 37; O2SAT 100; BMI 25.0
--- NOTE | 2024-02-06 10:07 | XR_ITS ---
WS: [id number] XR chest 1V portable [id number] REASON FOR EXAM: weakness, syncope FINDINGS: The chest is unchanged compared to 10/31/2021. The heart and the mediastinum are within normal limits. Calcified granulomas disease bilaterally. No acute/subacute pulmonary parenchymal or pleural abnormality. The bony thorax is intact without significant abnormality. XR/XR chest 1V portable [id number] IMPRESSION: Stable chest without acute abnormality.
--- NOTE | 2024-02-06 10:08 | ECG_ITS ---
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 Measurements Intervals [place] Rate: 78 P: 52 SC: 132 QRS: 80 QRSD: 98 T: 72 QT: 389 QTc: 445 Interpretive Statements SINUS RHYTHM POSSIBLE RIGHT VENTRICULAR CONDUCTION DELAY [RSR (QR) IN V1/V2] INTERPRETATION BASED ON A DEFAULT AGE OF 40 YEARS Compared to ECG 02/25/2020 14:34:08 Incomplete right bundle-branch block no longer present Myocardial infarct finding no longer present Electronically Signed On 02-06-2024 19:59:32 CDT by Ehsan Huerta M.D. [id number]
--- NOTE | 2024-02-06 10:09 | ED_ITS ---
HPI - Weakness 2 General: Chief complaint: Syncope Stated complaint: NEAR SYNCOPE Time Seen by Provider: 02/06/24 10:01 Source: patient and EMS Mode of arrival: EMS Limitations: no limitations History of Present Illness: Patient is a 38-year-old female presents to ED today via EMS for evaluation of presyncope/weakness. 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 She was reportedly minimally responsive. She told EMS she got lightheaded and dizzy and felt generally weak. Denies fall or syncopal episode. Upon arrival she is alert and oriented. She does whisper during the entire exam and tells me she feels weak and fatigued. She does complain of some right shoulder pain. Looking at previous documentation she has had this chronically. She also complains of a minor headache. States she has a history of migraines. She denies drug use or alcohol use. Vital signs upon arrival are stable. She states that she takes multiple prescription medications. She has no chest pain, shortness of breath, difficulty breathing, or palpitations. She has a history of anxiety and panic attacks. MD Complaint: generalized weakness Onset (ago): hour(s) Duration: constant Location: generalized Migration: none Severity: mild Relieving factors: none Exacerbating factors: none Associated symptoms: Reports headache(s) (hx of migraines); Denies chest pain, chills, dysuria, fever(s), nausea, syncope or vomiting Review of Systems 2 Const: Reports: fatigue and other (reporting generalized weakness; states she feels tired ); Denies: fever(s), chills or body aches Eyes: Denies: change in vision, photophobia, floaters or seeing flashes Card: Reports: pre-syncope; Denies: chest pain, palpitations, irregular heart rhythm, edema, swelling of feet/ankles, syncope, dyspnea on exertion, orthopnea, leg pain with exertion or acrocyanosis Resp: Denies: dyspnea GI: Denies: abdominal pain, nausea, vomiting or diarrhea : Denies: flank pain, dysuria or hematuria Musc: Reports: joint pain (shoulder pains); Denies: neck pain, back pain or joint swelling Skin/Breast: Denies: rash Neuro: Reports: headache(s) (hx of migraines); Denies: numbness in extremities, sensory changes, lack of coordination, frequent falls, Slurred speech present or seizure-like activity PFSH ED 2 PFSH: Medical History Hypertension No pertinent past medical history Neghx: dm,thyroid,dvt/pe PCP: Dr. Gupta Breast pain in female Chronic pain Fatigue POTS (postural orthostatic tachycardia syndrome) Migraine Surgical History History of nasal surgery History of tonsillectomy and adenoidectomy History of laparoscopic-assisted vaginal hysterectomy Ovaries were spared--due to endometriosis History of bladder repair surgery 2 different procedures completed by Dr. Cabezas; one during hyst and one after for prolapse History of breast augmentation Family History Grandmother Diabetes Hypertension Breast cancer maternal--- dx age 40's Mother Hypertension Father Hypertension Grandfather Hypertension Paternal Stroke Prostate cancer maternal Grandmother Hypertension Paternal Stroke Paternal Denies family history of Ovarian cancer CAD (coronary artery disease) Physical Exam 2 Const: COMMON NORMALS: no acute distress, average body habitus, patient oriented x3, no limitations, healthy appearing, alert and well nourished G ENERAL APPEARANCE: cooperative ORIENTATION/CONSCIOUSNESS: Yes awake, Yes oriented to person, Yes oriented to place and Yes oriented to time OTHER: whispers; states she feels weak and tired HENMT: COMMON NORMALS: normocephalic and atraumatic HEAD & SCALP: normal to inspection, normocephalic and atraumatic FACE & SINUS: normal facial exam and face symmetric Eye: COMMON NORMALS: Equal, round and reactive pupils present and EOMs intact bilaterally GENERAL EYE: appearance normal, both eyes and all related structures and normal light reflex PUPIL: Yes Equal, round and reactive pupils present DIRECT OPHTHALMOSCOPY: Yes normal light reflex Neck/C-Spine: COMMON NORMALS: full ROM and no lymphadenopathy GENERAL: Yes normal visual inspection Resp: COMMON NORMALS: normal respiratory effort and clear to auscultation bilaterally AUSCULTATION: clear to auscultation bilaterally Cardio: COMMON NORMALS: regular rate and regular rhythm RATE: regular rate RHYTHM: regular rhythm GI: COMMON NORMALS: Normal to inspection, nondistended, normoactive bowel sounds present, Soft to palpation and non-tender PALPATION: Yes Soft to palpation : COMMON NORMALS: Yes no CVA tenderness BLADDER/KIDNEY EXAM: Yes no CVA tenderness Back/Pelvis: COMMON NORMALS: no CVA tenderness and thoracic and lumbar spine normal to inspection Extremity: COMMON NORMALS: normal to inspection GENERAL: Yes normal exam except as noted Neuro: ZION COMA SCALE: document GCS findings [place] coma scale eye opening: Spontaneous [place] coma scale verbal response: Orientated Crane coma scale motor response: Obey commands Zion coma scale total score: 15 COMMON NORMALS: patient oriented x3, CN's II-XII intact bilaterally, moves all extremities, no focal motor deficits and no sensory deficits noted S ENSORIUM/ORIENTATION: Yes alert, Yes oriented to person, Yes oriented to place and Yes oriented to time Skin: COMMON NORMALS: no rashes or lesions noted GENERAL SKIN EXAM: no rashes or lesions noted Course 2 Vital Signs: Vital signs: Vital Signs Temperature 98.6 F 02/06/24 10:03 Pulse Rate 87 02/06/24 10:18 Respiratory Rate 14 02/06/24 10:18 Blood Pressure 149/99 02/06/24 10:18 Pulse Oximetry 100 02/06/24 10:18 MDM - Weakness Medical Decision Making Patient arrives with stable vital signs. Her blood work is completely unremarkable. CXR stable. EKG without arrhythmia or ischemic changes. At this time patient is stable for discharge from the emergency department with recommendations for rest and fluids at home. Return to ED precautions discussed. Otherwise she will follow-up with primary care early next week. Medical Records I reviewed the patient's medical records. Lab Data I reviewed the patient's lab results. 02/06/24 10:48 02/06/24 10:48 Radiology Impressions Chest X-Ray 02/06/24 10:07 IMPRESSION: Stable chest without acute abnormality. Laboratory Results WBC 5.47 10^3/uL (3.29-11.43) 02/06/24 10:48 RBC 4.40 10^6/uL (3.85-5.65) 02/06/24 10:48 Hgb 13.60 g/dL (11.27-16.99) 02/06/24 10:48 Hct 41.3 % (36-47) 02/06/24 10:48 MCV 93.9 fl (85-98) 02/06/24 10:48 MCH 30.9 pg (27-33) 02/06/24 10:48 MCHC 32.9 g/dL (30-55) 02/06/24 10:48 RDW 12.0 % (12.1-15.1) L 02/06/24 10:48 Plt Count 238 10^3/cmm (157-399) 02/06/24 10:48 MPV 11.5 fL (7.4-10.4) H 02/06/24 10:48 Neut % (Auto) 61.0 % 02/06/24 10:48 Lymph % (Auto) 25.4 % 02/06/24 10:48 [place] % (Auto) 9.0 % 02/06/24 10:48 Eos % (Auto) 3.5 % 02/06/24 10:48 Baso % (Auto) 1.1 % 02/06/24 10:48 Neut # (Auto) 3.34 10^3/uL (1.8-7.7) 02/06/24 10:48 Lymph # (Auto) 1.4 10^3/uL (0.8-4.8) 02/06/24 10:48 [place] # (Auto) 0.5 10^3/uL (0.2-0.9) 02/06/24 10:48 Eos # (Auto) 0.2 10^3/uL (0.0-0.8) 02/06/24 10:48 Baso # (Auto) 0.1 10^3/uL (0.0-0.1) 02/06/24 10:48 Nucleated RBC % (auto) 0 % 02/06/24 10:48 Nucleated RBCs # 0.0 /100WBC 02/06/24 10:48 Specimen Type Arterial 02/06/24 10:10 Sample Site Radial, right 02/06/24 10:10 ABG pH 7.43 (7.35-7.45) 02/06/24 10:10 ABG pCO2 41.9 mmHg (35-45) 02/06/24 10:10 ABG pO2 75.6 mmHg (80.0-100.0) L 02/06/24 10:10 ABG PO2/FiO2 Ratio 360 02/06/24 10:10 ABG HCO3 27.7 mmol/L (22-26) H 02/06/24 10:10 ABG O2 Saturation 96.5 02/06/24 10:10 ABG Base Excess 3.0 mmol/L (-2.0-2.0) H 02/06/24 10:10 Alex Test Pos 02/06/24 10:10 A-a O2 Gradient 3.0 mmHg (5-10) L 02/06/24 10:10 Hematocrit 41.7 % (37-47) 02/06/24 10:10 Hgb O2 Saturation 95.2 % (95-100) 02/06/24 10:10 Carboxyhemoglobin 1.1 %THgb (0.4-20.1) 02/06/24 10:10 Methemoglobin 0.2 % (0.4-1.5) L 02/06/24 10:10 Total Hemoglobin 13.6 g/dL (12-16) 02/06/24 10:10 Sodium 142.0 mmol/L (131-143) 02/06/24 10:10 Potassium 3.6 mmol/L (3.5-5.0) 02/06/24 10:10 Glucose 116.0 mg/dL (70-115) H 02/06/24 10:10 Ionized Calcium 1.2 mmol/L (1.1-1.4) 02/06/24 10:10 O2 Delivery Device Room air 02/06/24 10:10 FiO2 21.0 % 02/06/24 10:10 Automatic Machine Attendant ID [place] 02/06/24 10:10 Sodium 140 mmol/L (136-145) 02/06/24 10:48 Potassium 4.0 mmol/L (3.5-5.1) 02/06/24 10:48 Chloride 104 mmol/L (98-107) 02/06/24 10:48 Carbon Dioxide 27 mmol/L (22-29) 02/06/24 10:48 Anion Gap 13.0 (5-19) 02/06/24 10:48 BUN 11 mg/dL (6-20) 02/06/24 10:48 Creatinine 0.7 mg/dL (0.5-0.9) 02/06/24 10:48 GFR Calculation 93.6 mL/min (90-130) 02/06/24 10:48 Glucose 100 mg/dL (65-115) 02/06/24 10:48 Calculated Osmolality 289 mOsm/kg (285-295) 02/06/24 10:48 Calcium 8.9 mg/dL (8.5-10.5) 02/06/24 10:48 Total Bilirubin 0.4 mg/dL (0.15-1.2) 02/06/24 10:48 AST 15 U/L (0-32) 02/06/24 10:48 ALT 13 U/L (0-33) 02/06/24 10:48 Alkaline Phosphatase 78 U/L (35-105) 02/06/24 10:48 Creatine Kinase 67 U/L (26-192) 02/06/24 10:48 Total Protein 6.7 g/dL (6.6-8.7) 02/06/24 10:48 Albumin 4.6 g/dL (3.5-5.2) 02/06/24 10:48 Globulin 2.1 g/dL (1.3-4.6) 02/06/24 10:48 HCG, Qual Negative (Negative) 02/06/24 10:48 Urine Color Yellow (Yellow) 02/06/24 01:18 Urine Appearance Cloudy (CLEAR) A 02/06/24 01:18 Urine pH 8 (5-7) H 02/06/24 01:18 Ur Specific [place] 1.010 (1.005-1.030) 02/06/24 01:18 Urine Protein Neg (Negative) 02/06/24 01:18 Urine Glucose (UA) Norm (Normal) 02/06/24 01:18 Urine Ketones Negative (Negative) 02/06/24 01:18 Urine Blood Neg (Negative) 02/06/24 01:18 Urine Nitrate Negative (Negative) 02/06/24 01:18 Urine Bilirubin Neg (Negative) 02/06/24 01:18 Urine Urobilinogen Norm mg/dL (Negative) 02/06/24 01:18 Ur Leukocyte Esterase Negative (Negative) 02/06/24 01:18 Urine RBC Rare /hpf (0-2) 02/06/24 01:18 Urine WBC Rare /hpf (0-5) 02/06/24 01:18 Ur Squamous Epith Cells 0-4 /hpf (0-5) H 02/06/24 01:18 Amorphous Sediment 1+ /hpf 02/06/24 01:18 Urine Bacteria Trace /hpf (NONE) 02/06/24 01:18 Urine Opiates Screen Negative ng/mL (Negative) 02/06/24 01:18 Ur Barbiturates Screen Negative ng/mL (Negative) 02/06/24 01:18 Ur Phencyclidine Scrn Negative ng/mL (Negative) 02/06/24 01:18 Ur Amphetamines Screen Negative ng/mL (Negative) 02/06/24 01:18 U Benzodiazepines Scrn Negative ng/mL (Negative) 02/06/24 01:18 Urine Cocaine Screen Negative ng/mL (Negative) 02/06/24 01:18 U Marijuana (THC) Screen Negative ng/mL (Negative) 02/06/24 01:18 All radiology interpretation(s) finalized by discharge Discharge Plan Discharge Patient Disposition: Home Clinical Impression: Pre-syncope, Weakness Condition: Stable Prescriptions: No Action cholecalciferol (vitamin D3) 25 mcg (1,000 unit) capsule 25 mcg PO DAILY Aimovig Autoinjector 140 mg/mL auto-injector 140 mg SUBCUT .monthly Qty: 1 5RF buspirone 10 mg tablet 20 mg PO BID Qty: 120 3RF bupropion HCl 150 mg tablet sustained-release 12 hr 300 mg PO QAM Lyrica 150 mg capsule 150 mg PO BID PRN (Reason: NERVE PAIN) Nurtec ODT 75 mg tablet,disintegrating 75 mg PO DAILY PRN (Reason: migraine headache) Discharge Orders: Discharge ED (Routine); Ordered 02/06/24 Ordered By: Roseanne Carnes Referrals: Hailey Gupta MD [Primary Care Provider] - Activity Restrictions/Additional Instructions: As we discussed I would like you to rest and drink plenty of fluids when you get home. He may return to the emergency department for any worsening or concerning symptoms you have. Follow-up with primary care early next week if symptoms do not seem to be improving. Coding Level of Care Code ED [employer] for Gricel Haley
[2024-02-06 10:18] VITALS: BP 149/99; PULSE 87; RESP 14; O2SAT 100
[2024-02-06 10:23] LABS: ABG PCO2 41.9 mmHg (35-45); ABG PH Result 7.43 (7.35-7.45); Arterial Blood Gas Hematocrit 41.7 % (37-47); Blood Gas Allen Test Pos; Blood Gas Operator Identificat MONRO; Blood Gas Sample Site Radial, right; Blood Gas Sample Type Arterial; Carboxyhemoglobin 1.1 %THgb (0.4-20.1); HCO3 ABG 27.7 mmol/L (22-26); HGB O2 Sat 95.2 % (95-100); Ionized Calcium Level - ABG 1.2 mmol/L (1.1-1.4); Methemoglobin 0.2 % (0.4-1.5); Oxygen Device ROOM AIR; Oxygen Saturation ABG 96.5; PO2 ABG 75.6 mmHg (80.0-100.0); PO2 FiO2 Ratio Arterial Blood 360; Potassium Level - ABG 3.6 mmol/L (3.5-5.0); Total Hemoglobin 13.6 g/dL (12-16)
[2024-02-06 10:56] LABS: Basophils # 0.1 10^3/uL (0.0-0.1); Basophils % 1.1 %; Eosinophils # 0.2 10^3/uL (0.0-0.8); Eosinophils % 3.5 %; Hematocrit 41.3 % (36-47); Lymphocytes # 1.4 10^3/uL (0.8-4.8); Lymphocytes % 25.4 %; Mean Corpuscular HGB Conc 32.9 g/dL (30-55); Mean Corpuscular Hemoglobin 30.9 pg (27-33); Mean Corpuscular Volume 93.9 fl (85-98); Mean Platelet Volume 11.5 fL (7.4-10.4); Monocytes # 0.5 10^3/uL (0.2-0.9); Neutrophils # 3.34 10^3/uL (1.8-7.7); Nucleated Red Blood Cells % 0 %; Platelet Count 238 10^3/cmm (157-399); White Blood Count 5.47 10^3/uL (3.29-11.43)
--- NOTE | 2024-02-06 10:58 | PC.PHAR ---
PT HAS NIFEDIPINE ER 30MG-1 TABLET BY MOUTH DAILY LAST FILL 11/17/23 30DS. PT STATES IS NOT TAKING.
[2024-02-06] MEDS: sodium chloride 0.9% 1,000 ML 999 ML IV (11:01)
[2024-02-06 11:12] LABS: Alanine Aminotransferase 13 U/L (0-33); Albumin Level 4.6 g/dL (3.5-5.2); Alkaline Phosphatase 78 U/L (35-105); Aspartate Amino Transferase 15 U/L (0-32); Blood Urea Nitrogen 11 mg/dL (6-20); Calcium 8.9 mg/dL (8.5-10.5); Carbon Dioxide 27 mmol/L (22-29); Chloride 104 mmol/L (98-107); Creatine Phosphokinase 67 U/L (26-192); Creatinine Clr Calc Pharmacy 113.5185; Globulin 2.1 g/dL (1.3-4.6); Glomerular Filtration Rate 93.6 mL/min (90-130); Glucose 100 mg/dL (65-115); Osmolality Calculated 289 mOsm/kg (285-295); Sodium 140 mmol/L (136-145); Total Bilirubin 0.4 mg/dL (0.15-1.2); Total Protein 6.7 g/dL (6.6-8.7)
[2024-02-06 11:34] LABS: HCG, Serum Qual Negative (Negative)
[2024-02-06] MEDS: ketorolac 30 mg/mL INJ IVP (11:45)
[2024-02-06] MEDS: orphenadrine 30 mg/mL Inj 2 mL 60 MG IVP (11:46)
[2024-02-06 11:54] LABS: Amphetamines Screen Urine Negative (Negative); Barbiturates Screen Urine Negative (Negative); Benzodiazepines Screen Urine Negative (Negative); Cocaine Screen Urine Negative (Negative); Opiate Screen Urine Negative (Negative); PCP Screen Urine Negative (Negative); THC Screen Urine Negative (Negative)
[2024-02-06 11:58] LABS: Add Urine Microscopic? YES; Amorphous Sediment Urine 1+ /hpf; Bacteria Urine TRACE /hpf; Bilirubin Urine Neg (Negative); Blood Urine Neg (Negative); Glucose Urine UA Norm (Normal); Ketones Urine Negative (Negative); Leukocyte Esterase Urine Negative (Negative); Nitrate Urine Negative (Negative); Protein Urine Neg (Negative); RBC Urine RARE /hpf (0-2); Squamous Epithelial Cell Urine 0-4 /hpf (0-5); Urine Appearance Cloudy (CLEAR); Urine Color Yellow (Yellow); Urobilinogen Urine Norm (Negative); WBC Urine RARE /hpf (0-5); pH Urine 8 (5-7)
[2024-02-06 12:51] VITALS: BP 133/89; PULSE 78; RESP 15; O2SAT 98
== END 2024-02-06 12:52 | disposition home or self-care (01) ==
PROVIDERS: Emergency Provider Physician Assistant; PCP Family Medicine
DX: R55 Syncope and collapse (principal); R53.1 Weakness; I10 Essential (primary) hypertension
CPT/HCPCS: 36415; 36600; 71045; 80051; 80053; 80306; 81001; 82330; 82550; 82805; 84703; 85025; 93005; 96374; 96375; 99285; J1885; J2360; J7030